=== PATIENT | female | born 1955 | race Caucasian/White ===

== ENCOUNTER 2025-02-17 14:07 | Outpatient (CLI) | payer MEDICARE, BC, SELFPAY ==
--- OUTSIDE RECORDS SUMMARY | 2025-02-18 00:24 | XMS_ITS | Clinical Summary ---
Author Organization [facility] Address [address] [place] [id number] Care Team Providers Care Afternoon Babysitter Name Role Phone Velia Zelaya MD Primary Care Provider [phone] Allergies Active Allergy Reactions Criticality Noted Date Comments Adhesive Tape-Silicones Rash 11/16/2024 Camphor-Menthol Other - Describe In Comment Field 11/07/2019 ansari her skin Cat Dander Runny Nose 11/16/2024 Gold Au 198 Rash 10/17/2005 Iodine And Iodide Containing Products Rash 04/20/2017 Latex Rash 10/17/2005 Nickel Rash 10/17/2005 Perfume Ht52 Rash 08/11/2011 Pollen Extracts Runny Nose 10/17/2005 Silver Rash 10/17/2005 Soap Rash 10/17/2005 some soaps, and some deoderants Medications CYANOCOBALAMIN 1,000 MCG/ML INJECTION Inject 1,000 mcg intramuscular every 6 weeks. PROTECT FROM LIGHT 0 Active ferrous sulfate, 65 mg elemental, tablet Take 325 mg by mouth once daily. 0 Active pramipexole (MIRAPEX) 1.5 mg tablet Take 0.5 mg by mouth once daily. Active DULoxetine (CYMBALTA) 60 mg Delayed-release capsuleIndications: chronic musculoskeletal pain,generalized anxiety disorder,depression Take 60 mg by mouth 2 times daily. 0 09/07/19 10 Active lisinopril (PRINIVIL; ZESTRIL) 2.5 mg tablet Take 2.5 mg by mouth once daily. At noon Active MULTIVITAMIN W-MINERALS/LUTEIN (CENTRUM SILVER ORAL)Indications:vi tamin supplement Take 1 tablet. by mouth once daily. Active metFORMIN (GLUCOPHAGE) 500 mg tablet Take 1,000 mg by mouth 2 times daily with meals. Active traZODone (DESYREL) 100 mg tabletIndications:i nsomnia associated with depression Take 300 mg by mouth at bedtime. Active orlistat (ARNAUD) 60 mg capsuleIndications: weight loss management for patient with bmi >=27 Take 60 mg by mouth 3 times daily with meals. Active buPROPion (WELLBUTRIN SR) 150 mg Sustained-Release tabletIndications:S evere major depression without psychotic features (HC) Take 150 mg by mouth 2 times daily. 90 tablet. 10/18/19 Active latanoprost (XALATAN) 0.005 % ophthalmic solution Place 1 Drop into both eyes at bedtime. 06/26/20 Active glipiZIDE extended-release (GLUCOTROL XL) 2.5 mg Extended-Release tablet Take 2.5 mg by mouth once daily before a meal. 07/12/20 21 Active escitalopram oxalate (LEXAPRO) 20 mg tablet Take 20 mg by mouth at bedtime. 07/01/20 21 Active pantoprazole (PROTONIX) 40 mg delayed-release tablet Take 1 Tablet by mouth once daily. 02/07/20 Active pregabalin (LYRICA) 75 mg capsule Take 75 mg by mouth 2 times daily. 09/30/19 22 Active calcium carbonate 500 mg calcium (1,250 mg) chewable tablet Chew 1,250 mg by mouth once daily. Active alendronate (FOSAMAX) 70 mg tablet Take 70 mg by mouth once a week in the morning. 04/14/20 24 Active ibuprofen (ADVIL; MOTRIN) 600 mg tabletIndications:C arpal tunnel syndrome on right Take 1 Tablet (600 mg) by mouth every 6 hours if needed for Pain. Maximum of 3200 mg in 24 hours. 30 Tablet 05/24/20 24 Active furosemide (LASIX) 40 mg tablet Take 40 mg by mouth once daily in the morning. 05/12/20 24 Active traMADoL (Ultram) 50 mg tabletIndications:C arpal tunnel syndrome on left Take 1 Tablet (50 mg) by mouth every 6 hours if needed for Pain. 20 Tablet 06/23/20 Active ibuprofen (ADVIL; MOTRIN) 600 mg tabletIndications:C arpal tunnel syndrome on left Take 1 Tablet (600 mg) by mouth every 6 hours if needed for Pain. Maximum of 3200 mg in 24 hours. 30 Tablet 06/23/20 Active oxyCODONE 5 mg immediate release tabletIndications:T ailor's bunionette, right Take 1 Tablet (5 mg) by mouth every 6 hours if needed for Pain. 5 Tablet 5:33 PM CDT 11/22/19 Active Active Problems Problem Noted Date Diagnosed Date Carpal tunnel syndrome on left 06/22/2024 Carpal tunnel syndrome on right 05/23/2024 Traumatic complete tear of right rotator cuff Injury of tendon of rotator cuff, right, initial encounter 10/28/2021 Chronic pain syndrome 11/22/2018 Glaucoma 10/05/2018 Generalized anxiety disorder 10/05/2018 Severe major depression without psychotic featur es 08/31/2009 Type II or unspecified type diabetes mellitus without mention of complication, not stated as uncontrolled 10/20/2005 Unspecified essential hypertension 10/20/2005 Esophageal reflux 10/20/2005 Overview (10/20/2005): no problem for about a year Mild intermittent asthma 10/20/2005 DENZEL (obstructive sleep apnea) Overview (02/18/2017): Does not use CPAP Resolved Problems Problem Noted Date Diagnosed Date Resolved Date ELEVATED INR 10/22/2005 12/07/2021 Overview (10/23/2005): initial INR 1.3 MORBID OBESITY - s/p lap bypass 10/20/05 08/31/1989 12/07/2021 Overview (10/20/2005): BMI 57.1; had lap gastric bypass 10/20/2005 Encounters Date Type Department Care Team Description 02/17/2025 2:40 PM CDT Office Visit [facility] at [address] [phone] Santos Alberto MD Procedure (Bilateral L4-5 TFESI) 02/13/2025 Travel 02/07/2025 Transcribe Orders [facility] [address] [place] [address] Santos Alberto MD 01/11/2025 6:54 AM CDT - 01/11/2025 11:59 PM CDT Hospital Encounter [facility] [address] [place] [address] Lizette Burciaga MD Simmons, Brandon F, OT 01/11/2025 Travel 01/05/2025 8:45 AM CDT Office Visit [facility] [address] [address] [place] [address] Hollis Liu, DPM Post-op (Right foot, DOS 11/21/24, 6 week post op) 01/05/2025 Travel 12/28/2024 6:52 AM CDT - 12/28/2024 11:59 PM CDT Hospital Encounter [facility] [address], [place] [address] Lizette Burciaga MD Simmons, Brandon F, OT 12/28/2024 Travel 12/21/2024 6:56 AM CDT - 12/21/2024 11:59 PM CDT Hospital Encounter [facility] [address], [place] [address] Lizette Burciaga MD Simmons, Brandon F, OT 12/21/2024 Travel 12/12/2024 8:14 AM CDT - 12/12/2024 11:59 PM CDT Hospital Encounter [facility] [address], [place] [address] Ahrar, Velia, MD Aguilar, Quang F, OT Encounter for person encountering health services 12/12/2024 Travel 12/08/2024 8:00 AM CDT Office Visit [facility] [address] [place] [phone] Hollis Liu DPM Post-op (Right 2 week post op visit) 12/08/2024 Travel 12/05/2024 Travel 11/24/2024 8:15 AM CDT Office Visit [facility] [address] [place] [address] Hollis Liu DPM Post-op (Right foot, DOS 11/21/24, initial post op) 11/23/2024 Travel 11/22/2024 Telephone [facility] [address] [facility] [place] [phone] Hollis Liu DPRichard Post-op (follow up post surgery) 11/22/2024 Telephone [facility] [address] [facility] [place] [phone] Hollis Liu DPM Surgical Followup 11/21/2024 10:20 AM CDT - 11/21/2024 12:00 PM CDT Surgery [facility] [address] [facility] [place] [address] Hollis Liu DPRichard EXCISION METATARSAL HEAD 5th right 11/21/2024 10:12 AM CDT Anesthesia Event [facility] [address] [facility] [place] [address] Keeley Tucker CRNA 11/21/2024 8:40 AM CDT - 11/21/2024 1:35 PM CDT Hospital Encounter [facility] [address] [facility] [place] [address] Hollis Liu DPM Tailor's kavontte, right (Primary Dx) Discharge Disposition: Home Self Care 11/21/2024 Travel from Last 3 Months Immunizations Immunization Administration Dates Next Due Influenza A (H1N1), Inactiva drew (Age >=3 Years) 09/11/2009 Influenza, IIV3 (Age >=3 years) 06/05/20 14,08/26/2013,06/05/2011,2009 Pneumococcal Poly,23-Valent (Pneumovax) 07/25/2003 Tdap 02/16/2023 Zoster (Zostavax-ZVL, live) 01/14/2011 Family History Medical History Relation Name Comments Heart Disease Father Other Father lung disease - unknown Alcohol/Drug Mother Cancer Mother age 50 rubens g cancer Relation Name Status Comments Father Mother Social History Tobacco Use Types Packs/Day Years Used Date Smoking Tobacco: Never Passive Smoke Exposure: Never Smokeless Tobacco: Never Tobacco Cessation:Counseling Given: Yes Alcohol Use Standard Drinks/Week Comments No 0 (1 standard drink = 0.6 oz pur e alcohol) Comments No Sex and Gender Information Value Date Recorded Sex Assigned at Not on file Legal Sex Female 6:59 AM MANAGER DOCUMENTATION Gender Identity Not on file Sexual Orientation Not on file 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 Not on file Not on file No t on file Obstetrics History Para Term AB IAB SAB Ectopic Multiple Livin g Live Births 1 1 1 1 Date Outcome GA Total Labor Labor/2nd/3rd Weight Sex Type Anes PTL Isabel A1 A5 Name Clin Term Last Filed Vital Signs Vital Sign Reading Time Taken Comments Blood Pressure 119/65 11/21/2024 1:15 PM CDT Pulse 80 01/05/2025 8:42 AM CDT Temperature 36.8 C (98.2 F) 11/21/2024 11:15 AM CDT Respiratory Rate 16 11/21/2024 1:15 PM CDT Oxygen Saturation 95% 01/05/2025 8:42 AM CDT Inhaled Oxygen Concentration - - Weight 90.7 kg (200 lb) 01/05/2025 8:42 AM CDT Height 149.9 cm (4' 11) 11/21/2024 9:36 AM CDT Body Mass Index 40.4 11/21/2024 9:36 AM CDT Plan of Treatment Health Maintenance Due Date Last Done Comments Hepatitis C screening for age 18-79 10/29/1973 Lipids for age 45-75 10/29/2000 Mammogram for age 45-75 10/29/2000 Pneumococcal series for age 50+ (2 of 2 - PCV) 07/25/2004 07/25/2003 Zoster (shingles) series for age 50+ (2 of 3) 03/11/2011 01/14/2011 RSV vaccine for adults or (1 - Risk 60-74 years 1-dose series) 2015 Depression screening for age 12+ 02/17/2018 02/17/2017 BMI (ht and wt on same day) for age 18+ 04/08/2018 04/08/2017, 02/17/2017 DEXA/DXA scan for age 65+ 10/29/2020 Medicare Wellness for age 65+ 10/29/2020 COVID-19 vaccine series (2023- season) 2025 08/03/2024, 08/18/2022, 07/26/2021, Additional history exists Influenza Vaccine (Season Ended) 2025 06/05/2014, 08/26/2013, 06/05/2011, Additional history exists Colonoscopy through age 75 09/03/2032 09/03/2022, Tetanus booster 02/16/2033 02/16/2023 Tdap Completed 02/16/2023 Hepatitis B series for 19+ Aged Out N o longer eligible based on patient's age to complete this topic Medical Devices Implanted Type Area Energy Projects Lead Device Identifier Shelf Expiration Date Model / Serial / Lot Implant On The Fly - [id number] Implanted:Qty: 1 on 10/20/2005 at [facility] Stomach [id number] / / [id number] Description:SEAMGUARD BIOABS ORBABLE STAPLE LINE REINFORCEMENT Alloderm 2x12mm - [id number] Implanted: 006 (Quantity not on file) Explanted:(Quanti ty not on file) Stomach epicurio [id number] # / [id number] / [id number] Screw [employer] [place]on 2.4x16mm - [id number] Implanted:Qty: 2 on 08/12/2011 at [facility] Right: Foot [employer] [id number] # / / Screw Headed 2.5x16mm - [id number] Implanted:Qty: 2 on 07/05/2012 by Huseyin Watkins DPM at [facility] [employer] [id number] / / Description:2.5MM X 16MM K-Wire [id number] Blunt/Trocar - [id number] Implanted:Qty: 2 on 07/05/2012 at [facility] ip.access [facility] [id number] / / Mesh Ventral [address]in [address] St W/Echo Ps Cir - [id number] Implanted:Qty: 1 on 09/07/2020 by Mark Patiño MD at [facility] N/A: Abdomen [employer] 06/27/2021 [id number] / / [id number] Explanted Type Area Energy Projects Lead Device Identifier Shelf Expiration Date Model / Serial / Lot K-Wire [id number] Std - [id number] Implanted:Huseyin Menchaca DPM (Quantity not on file) Explanted:Qty: 1 on 08/12/2011 at [facility] [employer] [id number]# / / K-Wire 0.106m2oa Std - [id number] Implanted:Huseyin Menchaca DPM (Quantity not on file) Explanted:Qty: 2 on 08/12/2011 at [facility] [employer] [facility] --[id number]# / / Procedures Procedure Name Priority Date/Time Associated Diagnosis Comments AMB EPIDURAL STEROID INJECTION Routine 02/17/2025 8:00 AM CDT Spinal stenosis, lumbar region with neurogenic claudication XR C-ARM GREATER 1 HR Routine 11/21/2024 10:55 AM CDT EXCISION METATARSAL HEAD Elective 11/21/2024 9:57 AM CDT Tailor's bunionette, right Metatarsalgia, right foot Case Notes sagittal saw COLONOSCOPY 09/03/2022 8:09 AM MANAGER DOCUMENTATION from Last 3 Months or Most Recently Relevant to Health Maintenance Results * XR C-ARM GREATER 1 HR (11/21/2024 10:55 AM CDT) Anatomical Region Laterality Modality X-Ray Angiograph y 11/21/2024 11:2 4 AM CDT Narrative 11/21/2024 11:24 AM CDT For Patients: As a result of the Cures Act, medical imaging exams and procedure reports are released immediately into your electronic medical record. You may view this report before your referring provider. If you have questions, please contact your health care provider. Indication : Excision 5th metatarsal head. TECHNIQUE: C-arm fluoro time. FINDINGS: Fluoroscopy time 3 seconds. Two images. Dictated by Cullen Kebede MD @ 11/21/2024 11:24:10 AM (Electronically Signed) Procedure Note Hudson Kebede MD - 11/21/2024 For Patients: As a result of the Cures Act, medical imagingexams and procedure reports are released immediately into your electronicmedical record. You may view this report before your referring provider.If you have questions, please contact your health care provider. Indication : Excision 5th metatarsal head. TECHNIQUE: C-arm fluoro time. FINDINGS: Fluoroscopy time 3 seconds. Two images. Dictated by Cullen Kebede MD @ 11/21/2024 11:24:10 AM (Electronically Signed) us Hollis Liu DPM FLUOROSCOPY Final Res ult * COLONOSCOPY (09/03/2022 8:09 AM MANAGER DOCUMENTATION) 09/03/2022 8:09 AM MANAGER DOCUMENTATION Narrative Transcriptions Meli Hong MD - 09/03/2022 8:51 AM CST Patient Name: Fanny Nguyen Procedure Date: 09/03/2022 Gender: Female Date of : 1955 Admit Type: Ambulatory Procedure: Colonoscopy Proceduralist: Meli Patel MD Referring MD: Meli Patel MD Indications/Pre-Op Diagnosis: High risk colon cancer surveillance:Personal history of colonic polyps Medications: Monitored Anesthesia Care Procedure Description: The procedure, indications, potential complications, (bleeding, perforation, infection, adverse medication reaction, missed lesionsor polyps) and alternatives available were explained to the patient, who appeared to understand and indicated this. Opportunity for questionswas provided and informed consent obtained. The endoscope [id number] was passed through the anus and advanced to the cecum, identified by appendiceal orifice andileocecal valve. The colonoscopy was performed without difficulty. The patient tolerated the procedure well. The quality of the bowel preparationwas evaluated using the BBPS (Switchback Bowel Preparation Scale) with scores of: Right Colon = 3, Transverse Colon = 3 and Left Colon = 3 (entire mucosa seen well with no residual staining, small fragments of stoolor opaque liquid). The total BBPS score equals 9. Complications: No immediate complications. Estimated Blood Loss & Specimen: Estimated blood loss: none. Specimen collected: None Findings: The perianal and digital rectal examinations were normal. A few diverticula were found in the sigmoid colon. The exam was otherwise without abnormality on direct and retroflexion views. Impressions/Post-Op Diagnosis: - Diverticulosis in the sigmoid colon. - The examination was otherwise normal on direct and retroflexionviews. - No specimens collected. Recommendation: - Repeat colonoscopy in 5 years for surveillance. Moderate Sedation: see anesthesia report Meli Patel MD 09/03/2022 8:51:36 AM This report has been signed electronically. Note Initiated On: 09/03/2022 8:09 AM us Meli Her MD PROCEDURE ORD Fin al Result from Last 3 Months or Most Recently Relevant to Health Maintenance Insurance MEDICARE PART A HB ONLY MEDICARE PART B HB ONLY MEDICARE PB ONLY [facility] Advance Directives Documents on File Type Date Recorded Patient Trouble Clerk Expl anation Healthcare Directive 10/25/2005 * Full Code (Latest Code Status on File) Date Activated Date Inactivated Comments 11/21/2024 8:46 AM 11/21/2024 3:51 PM Question Answer Comments Code Status Discussion: Unable to Assess Preferences, Provider to review later * Full Code Date Activated Date Inactivated Comments 06/23/2024 11:30 AM 06/23/2024 4:20 PM Question Answer Comments Code Status Discussion: Unable to Assess Preferences, Provider to review later * Full Code Date Activated Date Inactivated Comments 05/24/2024 5:57 AM 05/24/2024 11:41 AM Question Answer Comments Code Status Discussion: Not Discussed * Full Code Date Activated Date Inactivated Comments 09/03/2022 6:02 AM 09/03/2022 11:49 AM Question Answer Comments Code Status Discussion: Not Discussed * Full Code Date Activated Date Inactivated Comments 11/12/2021 9:13 AM 11/12/2021 5:39 PM Question Answer Comments Code Status Discussion: Not Discussed Care Teams Afternoon Babysitter Relationship Specialty Start Date End Date Velia Zelaya MD [address] [place] [address] PCP - General Family Practice 08/14/22
== END 2025-02-17 14:08 | disposition home or self-care (01) ==
LOC: INJ CL 14:08
PROVIDERS: Visit Provider Family Medicine
DX: M54.16 Radiculopathy, lumbar region (principal); M51.369 Other intervertebral disc degeneration, lumbar region without mention of lumbar back pain or lower extremity pain; M48.062 Spinal stenosis, lumbar region with neurogenic claudication
CPT/HCPCS: 64483; J1100; Q9966